=== PATIENT | female | born 2005 | race Hispanic/Latino ===

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

== ENCOUNTER 2024-04-06 17:34 | Emergency (ER) | payer OTHER ==
[2024-04-06 20:20] LABS: BHCG - Serum Negative (NEGATIVE); Pregs Control Background? CLEAR/WHITE (CLR/WHITE); Pregs Control Bar Appear? YES (CONTROL BAR)
[2024-04-06] MEDS ORDERED: Ondansetron ODT 4 MG TAB ONE (20:32)
[2024-04-06] MEDS ORDERED: Ibuprofen 800 MG TAB ONE (20:32)
== END 2024-04-06 21:12 | disposition home or self-care (01) ==
LOC: ERS 17:34
DX: S09.90XA Unspecified injury of head, initial encounter (principal); W22.8XXA Striking against or struck by other objects, initial encounter; Y93.89 Activity, other specified
CPT/HCPCS: 36415; 70450; 84703; Q0162